=== PATIENT | male | born 1950 | race Caucasian/White ===

== ENCOUNTER 2018-09-03 08:25 | Emergency (ER) | payer MEDICARE, OTHER ==
[2018-09-03 08:43] VITALS: BP 163/76
--- NOTE | 2018-09-03 09:02 | EDM.PDOC ---
ED HPI GENERAL MEDICAL PROBLEM - General Chief Complaint: General Stated Complaint: LUMP ON CLAVICLE Time Seen by Provider: 09/03/18 09:02 Source of Information: Reports: Patient History Limitations: Reports: No Limitations - History of Present Illness INITIAL COMMENTS - FREE TEXT/NARRATIVE: 68-year-old male presents the ED with a palpable deformity and swelling which he states is enlarging on his right superior clavicle at the sternoclavicular junction. He recognizes this over a month ago. Plain x-rays were obtained and didn't show anything. This is quite common. Also time this is usually due to arthritic change. However it scalp located by the fact that he's lost 16 pounds of weight over the last 5-6 weeks and not on purpose. Of note the patient is a type II diabetic but states his sugars have been fairly well-controlled. Concer of course is that he may have cancer and this may be metastatic disease spread to his collarbone. He feels well however. Onset: Gradual (Started a lump on his right medial proximal clavicle about a month ago or more.) Onset Date: 08/01/18 Duration: Week(s):, Constant, Getting Worse Location: Reports: Neck (Lymph nodes medial superior aspect of proximal right clavicle. No known injuries in the past) Quality: Reports: Other (No pain. 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.) - Related Data Allergies Allergy/AdvReac Type Severity Reaction Status Date / Time metoclopramide Allergy Cannot Verified 09/03/18 08:37 Remember Home Meds: Home Meds Lovastatin 10 mg PO BEDTIME 03/22/14 [History] Ranitidine [Zantac] 150 mg PO BID 03/22/14 [History] metFORMIN [Glucophage] 500 mg PO BID 03/22/14 [History] traZODone 50 mg PO BEDTIME 03/22/14 [History] Aspirin/Caffeine [Back & Body Pain Reliever Cplt] 1 - 2 tab PO Q8H PRN 06/23/16 [History] Ergocalciferol (Vitamin D2) [Vitamin D2] 1 cap PO WEEKLY 06/23/16 [History] Hydrochlorothiazide/Lisinopril [Lisinopril-HCTZ 20-25 MG] 1 tab PO DAILY [History] Ibuprofen [Motrin] 1 tab PO Q6H PRN 06/23/16 [History] Modafinil 200 mg PO DAILY 06/23/16 [History] Omeprazole Magnesium [Prilosec Otc] 1 tab PO DAILY 06/23/16 [History] amLODIPine [Norvasc] 5 mg PO DAILY 06/23/16 [History] Past Medical History HEENT History: Reports: None Cardiovascular History: Reports: High Cholesterol, Hypertension Respiratory History: Reports: None, Sleep Apnea, Other (See Below) Other Respiratory History: Aspiration Pneumonia, chronic cough Gastrointestinal History: Reports: GERD (Currently using both Zantac when necessary and Prilosec.) Genitourinary History: Reports: None, Other (See Below) Other Genitourinary History: abnormal ejaculation, hematospermia 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 Musculoskeletal History: Reports: None, Other (See Below) Other Musculoskeletal History: arm pain, hand numbness, carpal tunnel syndrome, degenerative arthritis, lumbar strain, thumb injury Neurological History: Reports: None Psychiatric History: Reports: Depression, Other (See Below) Other Psychiatric History: fatigue Endocrine/Metabolic History: Reports: Diabetes, Type II, Vitamin D Deficiency Hematologic History: Reports: None Immunologic History: Reports: None Oncologic (Cancer) History: Reports: None Dermatologic History: Reports: Other (See Below) Other Dermatologic History: tinea pedis - Past Surgical History Head Surgeries/Procedures: Reports: None HEENT Surgical History: Reports: None GI Surgical History: Reports: Colonoscopy Neurological Surgical History: Reports: None Musculoskeletal Surgical History: Reports: Arthroscopic Knee, Arthroscopic Procedure Social & Family History - Tobacco Use Smoking Status *Q: Former Smoker Used Tobacco, but Quit: Yes Month/Year Tobacco Last Used: quit 38 years ago - Caffeine Use Caffeine Use: Reports: None - Recreational Drug Use Recreational Drug Use: No - Living Situation & Occupation Living situation: Reports: Occupation: Employed ED ROS GENERAL - Review of Systems Review Of Systems: See Below Constitutional: Reports: Weight Loss (About 16 pounds in the last 5-6 weeks. Not trying to lose weight.). Denies: Fever, Chills, Malaise, Weakness, Fatigue HEENT: Reports: Glasses Respiratory: Reports: No Symptoms Cardiovascular: Reports: No Symptoms, Blood Pressure Problem (History of hypertension usually well controlled on current medications. Blood pressures 163 on 76 on initial evaluation.) Endocrine: Reports: No Symptoms GI/Abdominal: Reports: No Symptoms, Other (Appetite remains good.) : Reports: No Symptoms Musculoskeletal: Reports: Other (Swelling non-painful medial aspect of right) Skin: Reports: No Symptoms ( proximal clavicle for the last month. See history of present illness) Neurological: Reports: No Symptoms Psychiatric: Reports: No Symptoms Hematologic/Lymphatic: Reports: No Symptoms Immunologic: Reports: No Symptoms ED EXAM, GENERAL - Physical Exam Exam: See Below Exam Limited By: No Limitations General Appearance: Alert, WD/WN, No Apparent Distress, Anxious (Minimally anxious.) Eye Exam: Bilateral Eye: Normal Inspection (No scleral icterus) Throat/Mouth: Normal Inspection, Normal Lips, Normal Oropharynx Head: Atraumatic, Normocephalic Neck: Normal Inspection, Supple, Non-Tender, Full Range of Motion, Other ( Palpable swelling bony in characteristic and irregular shaped superior aspect of the medial or proximal aspect of the right clavicle.). No: Carotid Bruit, Lymphadenopathy (L), Lymphadenopathy (R), Thyromegaly Respiratory/Chest: No Respiratory Distress ( He feels this area is enlarging over the last month), Lungs Clear, Normal Breath Sounds, Chest Non-Tender Cardiovascular: Normal Peripheral Pulses, Regular Rate, Rhythm, No Edema, No Gallop, No Murmur Peripheral Pulses: 2+: Posterior Tibial (L), Posterior Tibial (R), Dorsalis Pedis (L), Dorsalis Pedis (R) GI/Abdominal: Normal Bowel Sounds, Soft, Non-Tender, No Organomegaly, Other ( Mildly obese) Back Exam: Normal Inspection, Full Range of Motion. No: CVA Tenderness (L), CVA Tenderness (R) Extremities: Normal Inspection, Normal Range of Motion, Non-Tender, No Pedal Edema Neurological: Alert, Oriented, CN II-XII Intact, Normal Cognition, Normal Gait Psychiatric: Normal Affect, Normal Mood Skin Exam: Warm, Dry, Intact, Normal Color Course - Vital Signs Last Recorded V/S: Last Vital Signs Temp 36.9 C 09/03/18 08:39 Pulse 65 09/03/18 08:39 Resp 13 09/03/18 08:39 BP 163/76 H 09/03/18 08:39 Pulse Ox 100 09/03/18 08:39 - Orders/Labs/Meds Orders: Active Orders 24 hr Category Date Time Status Peripheral IV Care [RC] . DIRECTED Care 09/03/18 09:11 Active Sodium Chloride 0.9% [Saline Flush] Med 09/03/18 09:10 Active 10 ml FLUSH ASDIRECTED PRN Peripheral IV Insertion Adult [OM.PC] Stat Oth 09/03/18 09:11 Ordered Medication Orders Sodium Chloride (Saline Flush) 10 ml FLUSH ASDIRECTED PRN PRN Reason: Keep Vein Open Last Admin: 09/03/18 09:36 Dose: 10 ml Labs: Laboratory Tests 09/03/18 09/03/18 09/03/18 Range/Units 09:30 09:30 09:30 WBC 5.24 (4.23-9.07) K/mm3 RBC 5.09 (4.63-6.08) M/mm3 Hgb 15.2 (13.7-17.5) gm/L Hct 45.0 (40.1-51.0) % MCV 88.4 (79.0-92.2) fl MCH 29.9 (25.7-32.2) pg MCHC 33.8 (32.2-35.5) g/dl RDW Std Deviation 42.5 (35.1-43.9) fL Plt Count 292 (163-337) K/mm3 MPV 9.3 L (9.4-12.3) fl Neutrophils % (Manual) 60 (40-60) % Band Neutrophils % 0 (0-10) % Lymphocytes % (Manual) 27 (20-40) % Atypical Lymphs % 0 % Monocytes % (Manual) 9 (2-10) % Eosinophils % (Manual) 4 (0.8-7.0) % Basophils % (Manual) 0 L (0.2-1.2) Platelet Estimate Adequate RBC Morph Comment Normal ESR 6 (0-15) mm/hr Sodium 136 (136-145) mEq/L Potassium 4.2 (3.5-5.1) mEq/L Chloride 97 L (98-107) mEq/L Carbon Dioxide 27 (21-32) mEq/L Anion Gap 16.2 H (5-15) BUN 14 (7-18) mg/dL Creatinine 0.9 (0.7-1.3) mg/dL Est Cr Clr Drug Dosing 72.42 mL/min Estimated GFR (MDRD) > 60 (>60) mL/min BUN/Creatinine Ratio 15.6 (14-18) Glucose 174 H (80-115) mg/dL Hemoglobin A1c (4.50-6.20) % Calcium 9.7 (8.5-10.1) mg/dL Total Bilirubin 0.4 (0.2-1.0) mg/dL AST 16 (15-37) U/L ALT 26 (16-63) U/L Alkaline Phosphatase 81 (46-116) U/L C-Reactive Protein < 0.2 (<1.0) mg/dL Total Protein 7.7 (6.4-8.2) g/dl Albumin 4.5 (3.4-5.0) g/dl Globulin 3.2 gm/dL Albumin/Globulin Ratio 1.4 (1-2) TSH 3rd Generation (0.358-3.74) uIU/mL Urine Color (Yellow) Urine Appearance (Clear) Urine pH (5.0-8.0) Ur Specific [place] (1.005-1.030) Urine Protein (Negative) Urine Glucose (UA) (Negative) Urine Ketones (Negative) Urine Occult Blood (Negative) Urine Nitrite (Negative) Urine Bilirubin (Negative) Urine Urobilinogen (0.2-1.0) Ur Leukocyte Esterase (Negative) 09/03/18 09/03/18 09/03/18 Range/Units 09:30 09:30 09:30 WBC (4.23-9.07) K/mm3 RBC (4.63-6.08) M/mm3 Hgb (13.7-17.5) gm/L Hct (40.1-51.0) % MCV (79.0-92.2) fl MCH (25.7-32.2) pg MCHC (32.2-35.5) g/dl RDW Std Deviation (35.1-43.9) fL Plt Count (163-337) K/mm3 MPV (9.4-12.3) fl Neutrophils % (Manual) (40-60) % Band Neutrophils % (0-10) % Lymphocytes % (Manual) (20-40) % Atypical Lymphs % % Monocytes % (Manual) (2-10) % Eosinophils % (Manual) (0.8-7.0) % Basophils % (Manual) (0.2-1.2) Platelet Estimate RBC Morph Comment ESR (0-15) mm/hr Sodium (136-145) mEq/L Potassium (3.5-5.1) mEq/L Chloride (98-107) mEq/L Carbon Dioxide (21-32) mEq/L Anion Gap (5-15) BUN (7-18) mg/dL Creatinine (0.7-1.3) mg/dL Est Cr Clr Drug Dosing mL/min Estimated GFR (MDRD) (>60) mL/min BUN/Creatinine Ratio (14-18) Glucose (80-115) mg/dL Hemoglobin A1c 6.30 H (4.50-6.20) % Calcium (8.5-10.1) mg/dL Total Bilirubin (0.2-1.0) mg/dL AST (15-37) U/L ALT (16-63) U/L Alkaline Phosphatase (46-116) U/L C-Reactive Protein (<1.0) mg/dL Total Protein (6.4-8.2) g/dl Albumin (3.4-5.0) g/dl Globulin gm/dL Albumin/Globulin Ratio (1-2) TSH 3rd Generation 2.871 (0.358-3.74) uIU/mL Urine Color Light yellow (Yellow) Urine Appearance Clear (Clear) Urine pH 7.0 (5.0-8.0) Ur Specific [place] 1.020 (1.005-1.030) Urine Protein Negative (Negative) Urine Glucose (UA) Negative (Negative) Urine Ketones Negative (Negative) Urine Occult Blood Negative (Negative) Urine Nitrite Negative (Negative) Urine Bilirubin Negative (Negative) Urine Urobilinogen 0.2 (0.2-1.0) Ur Leukocyte Esterase Negative (Negative) Meds: Medications Generic Name Dose Route Start Last Admin Trade Name Freq PRN Reason Stop Dose Admin Sodium Chloride 10 ml 09/03/18 09:10 09/03/18 09:36 Saline Flush FLUSH 10 ml ASDIRECTED PRN Administration Keep Vein Open Discontinued Medications Generic Name Dose Route Start Last Admin Trade Name Imelda PRN Reason Stop Dose Admin Iopamidol 100 ml 09/03/18 10:56 09/03/18 11:15 Isovue-370 (76%) IV 09/03/18 10:57 100 ml ONETIME ONE Administration - Radiology Interpretation Free Text/Narrative:: 68-year-old male presents to the ED for evaluation of a mass superior aspect of his right medial collarbone at the sternoclavicular junction. States he felt a mass there over a month ago and had it x-rayed which did not reveal anything. He feels area is becoming more prominent and growing. He also has a reported 16 pound weight loss over the last 5-6 weeks which was not planned. He has diabetes and reports that his blood sugars have been under good control. On examination he does have a palpable bony deformity superior medial aspect of his right clavicle which appears somewhat spiculated. It is nontender. Full range of motion of his right shoulder with rotation of the clavicle. The area is nonpainful. No other cervical adenopathy anterior posterior chains were identified. There is no specific or infraclavicular adenopathy noted. Chest was clear to stage percussion heart was sinus no murmurs are identified benign abdominal examination. No other lymphadenopathy appreciated his axillas. Plan routine labs including a sedimentation rate and CRP. He will have CT chest abdomen pelvis performed of his creatinine is okay to allow IV contrast to explore his chest abdomen pelvis. - Re-Assessments/Exams Free Text/Narrative Re-Assessment/Exam: 09/03/18 10:53 Labs are back revealing a normal white count at 5.24. Differential is normal 60% neutrophils and no band cells. Hemoglobin is 15.2 with hematocrit of 45.0. Platelet count is 292,000. Sedimentation rate is 6. Sodium 136 with potassium of 4.2. Coronary 7 with a bicarbonate 27. And a gap is mildly elevated at 16.2. BUNs 14 with creatinine of 0.9. Estimate GFR is greater than 60. Glucose is elevated at 174. Hemoglobin A1c is very well controlled at 6.30. Calcium is 9.7 liver function is normal C-reactive protein less than 0.2. Total protein 7.7 with albumin fraction of 4.5. Will therefore be able to proceed with a CT of his chest abdomen pelvis with IV contrast since his renal function is normal. He is currently on metformin and has been advised to stay off of the metformin for the next 72 hours. 09/03/18 12:11 CT scan of the chest abdomen pelvis done with IV contrast is now back. The findings show that the lungs are clear. No pulmonary nodules are appreciated. No acute parenchymal changes appreciated. There is no pleural effusions or pneumothorax. No pericardial thickening is seen. No significant coronary artery calcifications appreciated small mediastinal lymph nodes are seen which are felt to be stable. No axillary adenopathy is seen. No supraclavicular adenopathy is seen. There is very slight asymmetric soft tissue density noted around the proximal right clavicle as compared to the left side this lies below the pectoralis muscle and is felt to be incidental. Bone window settings were reviewed which shows minimal degenerative spurring within the spine with several levels of vacuum phenomena within the lower thoracic spine due to degenerative disc disease no acute osseous abnormality is seen there is an old right-sided rib fracture within the right ninth rib. CT of the abdomen shows liver shows no focal abnormalities. Gallbladder contains no calcified gallstones. Spleen appears to be within normal limits. Several small cysts soft tissue nodules are noted off of the spleen which are felt compatible with accessory splenic tissue. Small cortical cysts are noted within the left kidney right kidney is normal. No hydronephrosis is identified adrenal glands show no nodule. Pancreas is within normal limits aorta shows no aneurysm. No retroperitoneal adenopathy or mesenteric abnormalities are noted. Appendix is seen which is normal in size. Calcification noted within the prostate gland. Delayed images show contrast within the distal ureters and within the bladder. Bone window settings were reviewed which show disc space narrowing and vacuum phenomena within the L2-3 through L5-S1 discs. I have discussed the findings with the patient. Will leave this area deserves further imaging an MRI will therefore be ordered of this area and I will have the x-ray department column with an appointment time early next week. We'll then follow-up with Makeda Avila his primary care provider due to after the MRI has been completed to discuss the results and see if further investigations such as biopsy of this area or warranted. This would most likely have to be done by a thoracic surgeon. Departure - Departure Time of Disposition: 12:04 Disposition: Home, Self-Care 01 Condition: Fair Clinical Impression: Unilateral mass of neck - Discharge Information *PRESCRIPTION DRUG MONITORING PROGRAM REVIEWED*: Not Applicable *COPY OF PRESCRIPTION DRUG MONITORING REPORT IN PATIENT MAYELIN: Not Applicable Referrals: Ronnie Avila PA-C [Primary Care Provider] - Forms: ED Department Discharge Additional Instructions: Evaluation in the emergency department today in regards to probable mass right medial clavicle which seems to be growing over the last month. It is nonpainful. Lab tests all proved to be completely normal with no concerns for underlying cancer. CT scan of the chest abdomen and pelvis also proved to show no signs of cancer. It did identify a subtle soft tissue mass density behind the right collarbone at the site of your palpable deformity. The cause of this her etiology is unclear at this point time and requires further investigation especially in light of recent reported weight loss. I will therefore arrange for an MRI of this area to be done early next week and now will have the x-ray department, you on Wednesday to arrange a convenient time for both of you. The results will be sent to Ronnie Avila your primary care provider and then he will direct where further care may be required such as if biopsy of this area is required it probably will be done open and should probably be done by a thoracic surgeon. Just making an appointment to see Ronnie avila a day or 2 after the MRI is completed. - My Orders Last 24 Hours: My Active Orders 09/03/18 09:10 Sodium Chloride 0.9% [Saline Flush] 10 ml FLUSH ASDIRECTED PRN 09/03/18 09:11 Peripheral IV Care [RC] . DIRECTED Peripheral IV Insertion Adult [OM.PC] Stat - Assessment/Plan Last 24 Hours: My Active Orders 09/03/18 09:10 Sodium Chloride 0.9% [Saline Flush] 10 ml FLUSH ASDIRECTED PRN 09/03/18 09:11 Peripheral IV Care [RC] . DIRECTED Peripheral IV Insertion Adult [OM.PC] Stat
[2018-09-03] MEDS ORDERED: Sodium Chloride 0.9% 10 ML Syringe FLUSH PRN (09:10)
[2018-09-03 10:30] LABS: HEMOGLOBIN A1C 6.3 % (4.50-6.20)
[2018-09-03] MEDS ORDERED: Iopamidol 755 Mg/ML 200 ML Bottle IV ONE (10:56)
--- NOTE | 2018-09-03 11:37 | CT ---
CT chest Technique: No prior chest CT, previous chest x-ray of 05/14/18. Findings: Lungs are clear. No pulmonary nodule is seen. No acute parenchymal change is appreciated. No pleural effusions or pneumothorax are seen. No pericardial thickening is seen. No significant coronary artery calcification is noted. Small mediastinal lymph nodes are seen which are felt to be stable. No axillary adenopathy is seen. No supraclavicular adenopathy is seen. Very slight asymmetric soft tissue density is noted around the proximal right clavicle as compared to the left side. This lies below the pectoralis muscle and is felt to be incidental. Bone window settings were reviewed which shows minimal degenerative spurring within the spine with several levels of vacuum phenomena within the lower thoracic spine. No acute osseous abnormality is seen. There is an old right-sided rib fracture within the right ninth rib. Impression: 1. Minimally asymmetric soft tissue density between the right and left proximal clavicle. This is felt to be incidental. 2. Other incidental findings. Nothing acute is seen. Diagnostic code #2 CT abdomen and pelvis Technique: Multiple axial sections were obtained from above the dome of the diaphragm inferiorly through the pubic symphysis. Intravenous contrast was utilized. No oral contrast has been given. Delayed images were obtained through the bladder. Comparison: No prior abdominal imaging. Findings: Liver contains no focal abnormality. Gallbladder contains no calcified gallstones. Spleen appears within normal limits. Several small soft tissue nodules are noted off the spleen which are felt compatible with accessory splenic tissue. Small cortical cysts are noted within the left kidney. Right kidney is normal. No hydronephrosis is seen. Adrenal glands show no nodule. Pancreas is within normal limits. Aorta shows no aneurysm. No retroperitoneal adenopathy or mesenteric abnormalities are seen. Appendix is seen which is normal in size. Calcifications are noted within the prostate gland. Delayed images shows contrast within the distal ureters and within the bladder. Bone window settings were reviewed which shows disc space narrowing and vacuum phenomena within the L2-3 through L5-S1 disks. Impression: 1. Incidental findings as noted above. Nothing acute is appreciated on CT study of the abdomen and pelvis. Diagnostic code #2
== END 2018-09-03 12:23 | disposition home or self-care (01) ==
LOC: JD.ED 08:25
DX: R22.1 Localized swelling, mass and lump, neck (principal); I10 Essential (primary) hypertension; E11.9 Type 2 diabetes mellitus without complications; Z88.8 Allergy status to other drugs, medicaments and biological substances; Z79.899 Other long term (current) drug therapy; Z87.891 Personal history of nicotine dependence
CPT/HCPCS: 36415; 71260; 74177; 80053; 81003; 83036; 84443; 85007; 85027; 85652; 86140; 99284; Q9967; 99283

== ENCOUNTER 2019-01-29 12:11 | Emergency (ER) | payer MEDICARE, OTHER ==
--- NOTE | 2019-01-29 12:42 | EDM.PDOC ---
ED HPI GENERAL MEDICAL PROBLEM - General Chief Complaint: Chest Pain Stated Complaint: CHEST PAIN WHEN LIFTING Time Seen by Provider: 01/29/19 12:37 Source of Information: Reports: Patient History Limitations: Reports: No Limitations - History of Present Illness INITIAL COMMENTS - FREE TEXT/NARRATIVE: 68-year-old male presents to the ED with right paracentral chest pressure discomfort that's worsened by movement and on exertion by throwing his hoses around at work. This been present for about 3 days. He then had a little bit of left-sided chest pain which felt more burning and discomfort this morning. Denies having excessive positive heartburn. Denies burping or belching. Denies fever or chills. He is coughing up a bit more clearish sputum than normal. A non -deep inspiration. 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 Has no pain in either orbit. Denies any hemoptysis. O2 sats are 98% on room air. Onset: Gradual Onset Date: 01/26/19 (As noted a fairly constant right parasternal mid chest pressure discomfort worsened by exertion for the last 3 days.) Duration: Day(s):, Waxing/Waning (Usually comes on with exertion. This usually means putting his hoses away or pulling a hose out of the back of a truck when he is working.) Location: Reports: Chest (Right parasternal chest discomfort.) Quality: Reports: Ache Severity: Moderate (4 out of 10.) Improves with: Reports: Rest Worsens with: Reports: Other Context: Reports: Exercise, Other (Pain is worsened by work.). Denies: Activity (Certain movements and particularly lifting his and pulling his hoses out of the back of his truck causes the pain to worsen.), Lifting, Sick Contact , Trauma Associated Symptoms: Reports: Chest Pain, Cough, cough w sputum (Mild cough of clearish sputum.). 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) (None.) Upper Chest Pain Score (Numeric/FACES): 1 - Related Data Allergies Allergy/AdvReac Type Severity Reaction Status Date / Time metoclopramide Allergy Cannot Verified 01/29/19 12:21 Remember Home Meds: Home Meds Lovastatin 10 mg PO BEDTIME 03/22/14 [History] Ranitidine [Zantac] 150 mg PO BID 03/22/14 [History] metFORMIN [Glucophage] 500 mg PO BID 03/22/14 [History] traZODone 50 mg PO BEDTIME 03/22/14 [History] Aspirin/Caffeine [Back & Body Pain Reliever Cplt] 1 - 2 tab PO Q8H PRN 06/23/16 [History] Ibuprofen [Motrin] 1 tab PO Q6H PRN 06/23/16 [History] Modafinil 200 mg PO DAILY 06/23/16 [History] Omeprazole Magnesium [Prilosec Otc] 1 tab PO DAILY 06/23/16 [History] amLODIPine [Norvasc] 5 mg PO DAILY 06/23/16 [History] Azithromycin [Zithromax] 250 mg PO DAILY #6 tab 01/29/19 [Rx] Past Medical History HEENT History: Reports: None Cardiovascular History: Reports: High Cholesterol, Hypertension Respiratory History: Reports: None, Sleep Apnea, Other (See Below) Other Respiratory History: Aspiration Pneumonia, chronic cough Gastrointestinal History: Reports: GERD Genitourinary History: Reports: None, Other (See Below) Other Genitourinary History: abnormal ejaculation, hematospermia 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 Musculoskeletal History: Reports: None, Other (See Below) Other Musculoskeletal History: arm pain, hand numbness, carpal tunnel syndrome, degenerative arthritis, lumbar strain, thumb injury Neurological History: Reports: None Psychiatric History: Reports: Depression, Other (See Below) Other Psychiatric History: fatigue Endocrine/Metabolic History: Reports: Diabetes, Type II, Vitamin D Deficiency Hematologic History: Reports: None Immunologic History: Reports: None Oncologic (Cancer) History: Reports: None Dermatologic History: Reports: Other (See Below) Other Dermatologic History: tinea pedis - Past Surgical History Head Surgeries/Procedures: Reports: None HEENT Surgical History: Reports: None GI Surgical History: Reports: Colonoscopy Neurological Surgical History: Reports: None Musculoskeletal Surgical History: Reports: Arthroscopic Knee, Arthroscopic Procedure Social & Family History - Tobacco Use Smoking Status *Q: Never Smoker Second Hand Smoke Exposure: No - Caffeine Use Caffeine Use: Reports: None - Living Situation & Occupation Living situation: Reports: Occupation: Employed ED ROS GENERAL - Review of Systems Review Of Systems: See Below Constitutional: Reports: Weakness, Fatigue. Denies: Fever, Chills, Malaise, Decreased Appetite, Weight Loss HEENT: Reports: Glasses Respiratory: Reports: Cough. 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 Denies : Claudication, Dyspnea on Exertion, Edema, Lightheadedness, Orthopnea, Palpitations Endocrine: Reports: No Symptoms GI/Abdominal: Reports: Other (Mild heartburn.) : Reports: Frequency (Nocturia 2.), Other Musculoskeletal: Reports: No Symptoms Skin: Reports: No Symptoms Neurological: Reports: No Symptoms Psychiatric: Reports: No Symptoms Hematologic/Lymphatic: Reports: No Symptoms Immunologic: Reports: No Symptoms ED EXAM, GENERAL - Physical Exam Exam: See Below Exam Limited By: No Limitations General Appearance: Alert, WD/WN, No Apparent Distress Eye Exam: Bilateral Eye: Normal Inspection, PERRL Ears: Normal External Exam, Normal Canal, Normal TMs Throat/Mouth: Normal Inspection, Normal Lips, Normal Teeth, Normal Oropharynx Head: Atraumatic, Normocephalic Neck: Normal Inspection, Supple, Non-Tender, Full Range of Motion. No: Lymphadenopathy (L), Lymphadenopathy (R) Respiratory/Chest: No Respiratory Distress, Lungs Clear, No Accessory Muscle Use , Chest Non-Tender, Rhonchi (Few rhonchi both bases of lungs likely due to atelectasis.), Other (I could not elicit any chest pain on firm palpation over the anterior ribs or sternum.) Cardiovascular: Normal Peripheral Pulses, Regular Rate, Rhythm, No Edema, No Gallop, No Murmur, No Rub Peripheral Pulses: 3+: Posterior Tibial (L), Posterior Tibial (R), Dorsalis Pedis (L), Dorsalis Pedis (R) GI/Abdominal: Normal Bowel Sounds, Soft, Non-Tender, No Organomegaly, No Abnormal Bruit, No Mass, Pelvis Stable Back Exam: Normal Inspection, Full Range of Motion, Other (No palpable deformities over the rib heads.) Extremities: Normal Inspection, Normal Range of Motion, Non-Tender, No Pedal Edema, Normal Capillary Refill Neurological: Alert, Oriented, CN II-XII Intact, Normal Cognition Psychiatric: Normal Affect, Normal Mood Skin Exam: Warm, Dry, Intact, Normal Color, No Rash EKG INTERPRETATION EKG Date: 01/29/19 Time: 13:01 Rhythm: Other Rate (Beats/Min): 58 [place]: LAD-Left Cantrall Deviation (-32) P-Wave: Present QRS: Other (Initial poor R-wave progression. Consider anteroseptal myocardial infarction. There is a near Q-wave in lead 3 and aVF consider old inferior wall myocardial infarction.) ST-T: Other (Mild early repolarization pattern.) EKG Interpretation Comments: Abnormal ECG Course - Vital Signs Last Recorded V/S: Last Vital Signs Temp 36.1 C 01/29/19 12:20 Pulse 62 01/29/19 12:20 Resp 14 01/29/19 12:20 BP 161/60 H 01/29/19 12:20 Pulse Ox 100 01/29/19 12:20 - Orders/Labs/Meds Orders: Active Orders 24 hr Category Date Time Status EKG Documentation Completion [RC] STAT Care 01/29/19 12:37 Active Chest 1V Frontal [CR] Stat Exams 01/29/19 12:37 Taken Sodium Chloride 0.9% [Normal Saline] 1,000 ml Med 01/29/19 12:45 Active IV ASDIRECTED Medication Orders Sodium Chloride (Normal Saline) 1,000 mls @ 150 mls/hr IV ASDIRECTED DI Last Admin: 01/29/19 13:00 Dose: 150 mls/hr Labs: Laboratory Tests 01/29/19 01/29/19 01/29/19 Range/Units 12:53 12:53 12:53 WBC 4.66 (4.23-9.07) K/mm3 RBC 4.34 L (4.63-6.08) M/mm3 Hgb 13.1 L D (13.7-17.5) gm/L Hct 38.9 L (40.1-51.0) % MCV 89.6 (79.0-92.2) fl MCH 30.2 (25.7-32.2) pg MCHC 33.7 (32.2-35.5) g/dl RDW Std Deviation 43.3 (35.1-43.9) fL Plt Count 269 (163-337) K/mm3 MPV 9.1 L (9.4-12.3) fl Neut % (Auto) 59.8 (34.0-67.9) % Lymph % (Auto) 27.0 (21.8-53.1) % [place] % (Auto) 7.7 (5.3-12.2) % Eos % (Auto) 4.9 (0.8-7.0) Baso % (Auto) 0.6 (0.1-1.2) % Neut # (Auto) 2.78 (1.78-5.38) K/mm3 Lymph # (Auto) 1.26 L (1.32-3.57) K/mm3 [place] # (Auto) 0.36 (0.30-0.82) K/mm3 Eos # (Auto) 0.23 (0.04-0.54) K/mm3 Baso # (Auto) 0.03 (0.01-0.08) K/mm3 PT 10.1 (9.7-12.0) SECONDS INR < 0.93 APTT (22-31) SECONDS D-Dimer, Quantitative (0.19-0.50) mg/L Sodium 140 (136-145) mEq/L Potassium 4.3 (3.5-5.1) mEq/L Chloride 106 (98-107) mEq/L Carbon Dioxide 26 (21-32) mEq/L Anion Gap 12.3 (5-15) BUN 12 (7-18) mg/dL Creatinine 0.8 (0.7-1.3) mg/dL Est Cr Clr Drug Dosing 89.98 mL/min Estimated GFR (MDRD) > 60 (>60) mL/min BUN/Creatinine Ratio 15.0 (14-18) Glucose 148 H (80-115) mg/dL Calcium 9.0 (8.5-10.1) mg/dL Magnesium 2.0 (1.8-2.4) mg/dl Total Bilirubin 0.3 (0.2-1.0) mg/dL AST 13 L (15-37) U/L ALT 24 (16-63) U/L Alkaline Phosphatase 81 (46-116) U/L CK-MB (CK-2) 2.1 (0-3.6) ng/ml Troponin I < 0.017 (0.00-0.056) ng/mL C-Reactive Protein 0.2 (<1.0) mg/dL NT-Pro-B Natriuret Pep (0-125) pg/mL Total Protein 6.8 (6.4-8.2) g/dl Albumin 4.0 (3.4-5.0) g/dl Globulin 2.8 gm/dL Albumin/Globulin Ratio 1.4 (1-2) 01/29/19 01/29/19 Range/Units 12:53 12:53 WBC (4.23-9.07) K/mm3 RBC (4.63-6.08) M/mm3 Hgb (13.7-17.5) gm/L Hct (40.1-51.0) % MCV (79.0-92.2) fl MCH (25.7-32.2) pg MCHC (32.2-35.5) g/dl RDW Std Deviation (35.1-43.9) fL Plt Count (163-337) K/mm3 MPV (9.4-12.3) fl Neut % (Auto) (34.0-67.9) % Lymph % (Auto) (21.8-53.1) % [place] % (Auto) (5.3-12.2) % Eos % (Auto) (0.8-7.0) Baso % (Auto) (0.1-1.2) % Neut # (Auto) (1.78-5.38) K/mm3 Lymph # (Auto) (1.32-3.57) K/mm3 [place] # (Auto) (0.30-0.82) K/mm3 Eos # (Auto) (0.04-0.54) K/mm3 Baso # (Auto) (0.01-0.08) K/mm3 PT (9.7-12.0) SECONDS INR APTT 23 (22-31) SECONDS D-Dimer, Quantitative 0.21 (0.19-0.50) mg/L Sodium (136-145) mEq/L Potassium (3.5-5.1) mEq/L Chloride (98-107) mEq/L Carbon Dioxide (21-32) mEq/L Anion Gap (5-15) BUN (7-18) mg/dL Creatinine (0.7-1.3) mg/dL Est Cr Clr Drug Dosing mL/min Estimated GFR (MDRD) (>60) mL/min BUN/Creatinine Ratio (14-18) Glucose (80-115) mg/dL Calcium (8.5-10.1) mg/dL Magnesium (1.8-2.4) mg/dl Total Bilirubin (0.2-1.0) mg/dL AST (15-37) U/L ALT (16-63) U/L Alkaline Phosphatase (46-116) U/L CK-MB (CK-2) (0-3.6) ng/ml Troponin I (0.00-0.056) ng/mL C-Reactive Protein (<1.0) mg/dL NT-Pro-B Natriuret Pep 14 (0-125) pg/mL Total Protein (6.4-8.2) g/dl Albumin (3.4-5.0) g/dl Globulin gm/dL Albumin/Globulin Ratio (1-2) Meds: Medications Generic Name Dose Route Start Last Admin Trade Name Freq PRN Reason Stop Dose Admin Sodium Chloride 1,000 mls @ 150 mls/hr 01/29/19 12:45 01/29/19 13:00 Normal Saline IV 150 mls/hr ASDIRECTED DI Administration - Radiology Interpretation Free Text/Narrative:: 68-year-old male presents to the ED for evaluation of central chest pressure discomfort that he said to the right parasternal area for about 3 days. He appreciates worsens on exertion. This occurs mostly when he is lifting his toes is in and out of his truck in the workplace. He's been coughing a little bit more lately and bring up some clearish sputum. No associated fever or chills. Examination reveals a few rhonchi both lower lobes of the bases. O2 sats are 90 % on room air. His lower extremities show no clinical evidence of swelling or DVT. Plan he will have a cardiac workup and a single chest x-ray. - Re-Assessments/Exams Free Text/Narrative Re-Assessment/Exam: 01/29/19 14:00: Chest x-ray done portably shows a normal cardiac silhouette with perhaps a very mildly prominent thoracic aorta suggesting some degree of tortuosity. Visualized lung lazo are clear. There is no pleural effusion there is no pneumothorax. 01/29/19 14:34 Labs reveal a normal white count at 4.66. The auto differential shows 60% neutrophils and 27% lymphocytes. Hemoglobin is 13.1 with a hematocrit of 38.9. Platelet count 26 9000. PT is 10.1 with an INR of less than 0.93. PTT is 23 with a d-dimer at 0.21. Sodium 140 with a potassium of 4.3. Chloride 106 with a bicarbonate 26. And a gap is 12.3. BUN is 12. GFR is greater than 60. Glucose is 148. Calcium 9.0. Magnesium 2.0. Liver function is normal. CK-MB fraction is 2.1 and troponin is less than 0.017. C-reactive protein is 0.2. BNP is 14. Total protein 6.8 with an albumin fraction of 4.0. 01/29/19 14:57 discussed the findings with the patient. He may be coming down with a viral upper respiratory tract infection i.e. bronchitis but at this point time I do not see any need for antibiotic treatment. Regards to his chest pain is worse with exertion of advised him to keep an eye on this is a suspect is chest wall in origin. If things are not markedly improved in 7-10 days time than he should have another ECG stress test. Last one was about 2 years ago when he passed this without any problems. When he was recently back home in [place] he had ultrasound of both carotid arteries and CT brain which proved to be completely normal. A strip claudication and quit smoking may years ago. I will give the patient a prescription for Z-Salomón to fill if he develops any fever or develops a cough containing green or yellowish phlegm Departure - Departure Time of Disposition: 14:58 Disposition: Home, Self-Care 01 Condition: Fair Clinical Impression: Non-cardiac chest pain, Viral bronchitis Prescriptions: Azithromycin [Zithromax] 250 mg PO DAILY #6 tab Referrals: Ronnie Blum PA-C [Primary Care Provider] - Forms: ED Department Discharge Additional Instructions: Evaluation the emergency room today in regards to persistent right parasternal chest discomfort for the last 3 days and some left precordial chest discomfort yesterday. He noticed this seems to be worse with exertion such as moving the hoses and placing the hoses into the back of the truck at work. He also seemed to be coming down with an upper respiratory tract infection with increased clear sputum production at this time and no fever. Investigations done through the ED and revealed a normal ECG. Chest x-ray is also clear and normal. Does not show any signs of pneumonia. Tests also revealed a normal white blood cell count with some suggest developing an early viral infection. Cardiac markers for heart attack were all normal. No evidence of any blood clots in the lung with a normal d-dimer. Markers for bacterial infection also proved to be negative. At this point time your chest pain appears to be chest wall in origin i.e. musculoskeletal. The deep muscles in between the ribs causing pain with certain movements. Continue Motrin 600 mg every 6 hours needed for pain relief. Having pain is 7-10 days time with exertion and you need a ECG stress test.) Patient for a Z-Salomón which is an antibiotic. You could take this 2 tablets the first day and then 1 tablet daily for another 4 days if your cough worsened since becomes more productive of yellow or greenish phlegm or you develop any fever or chills. - My Orders Last 24 Hours: My Active Orders 01/29/19 12:37 EKG Documentation Completion [RC] STAT Chest 1V Frontal [CR] Stat 01/29/19 12:45 Sodium Chloride 0.9% [Normal Saline] 1,000 ml IV ASDIRECTED - Assessment/Plan Last 24 Hours: My Active Orders 01/29/19 12:37 EKG Documentation Completion [RC] STAT Chest 1V Frontal [CR] Stat 01/29/19 12:45 Sodium Chloride 0.9% [Normal Saline] 1,000 ml IV ASDIRECTED
[2019-01-29] MEDS ORDERED: Sodium Chloride 0.9% 1,000 ML IV SCH (12:45)
[2019-01-29 15:17] VITALS: BP 126/74; PULSE 56
--- NOTE | 2019-01-30 09:22 | CR ---
Chest: Portable view of the chest was obtained. Comparison: Prior chest x-ray of 05/14/18 Heart size and mediastinum are within normal limits for portable technique. Lungs are clear with no acute parenchymal change. Bony structures are grossly intact. Impression: 1. Nothing acute is seen on portable chest x-ray. Diagnostic code #1
== END 2019-01-29 15:15 | disposition home or self-care (01) ==
LOC: JD.ED 12:11
DX: J20.8 Acute bronchitis due to other specified organisms (principal); I10 Essential (primary) hypertension; E78.00 Pure hypercholesterolemia, unspecified; K21.9 Gastro-esophageal reflux disease without esophagitis; E11.9 Type 2 diabetes mellitus without complications; F32.9 Major depressive disorder, single episode, unspecified; Z88.8 Allergy status to other drugs, medicaments and biological substances; Z79.82 Long term (current) use of aspirin; Z79.899 Other long term (current) drug therapy; Z79.84 Long term (current) use of oral hypoglycemic drugs
CPT/HCPCS: 36415; 71045; 80053; 82553; 83735; 83880; 84484; 85025; 85379; 85610; 85730; 86140; 93005; 96360; 96361; 99285; J7040; 93010; 99284

== ENCOUNTER 2019-06-02 14:04 | Emergency (ER) | payer MEDICARE, OTHER ==
[2019-06-02 14:21] VITALS: BP 157/90; PULSE 66
--- NOTE | 2019-06-02 14:28 | EDM.PDOC ---
ED HPI GENERAL MEDICAL PROBLEM - General Chief Complaint: Upper Extremity Injury/Pain Stated Complaint: ELBOW PAIN Time Seen by Provider: 06/02/19 14:17 Source of Information: Reports: Patient, RN Notes Reviewed History Limitations: Reports: No Limitations - History of Present Illness INITIAL COMMENTS - FREE TEXT/NARRATIVE: Patient is a 69-year-old male who presents to the ED for the evaluation of right elbow pain. Patient notes that he has had an issue with tennis elbow for around 15 years now. He states however at that time he did PT, and the pain gradually subsided. He noticed that he began to have some more irritation about a week ago, and the pain keeps flaring up and he keeps reinjuring the elbow over the last week. He states he is not taking any sort of medications for pain relief. He is not using any sort of brace for pain relief. 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 He denies any numbness and tingling into his hand, and he has no further pain into his shoulder. He further denies any trauma to the area. His primary care provider is Ronnie Blum. Right Elbow Pain Score (Numeric/FACES): 5 - Related Data Allergies Allergy/AdvReac Type Severity Reaction Status Date / Time metoclopramide Allergy Cannot Verified 06/02/19 14:21 Remember Home Meds: Home Meds Lovastatin 10 mg PO BEDTIME 03/22/14 [History] Ranitidine [Zantac] 150 mg PO BID 03/22/14 [History] metFORMIN [Glucophage] 500 mg PO BID 03/22/14 [History] traZODone 50 mg PO BEDTIME 03/22/14 [History] Aspirin/Caffeine [Back & Body Pain Reliever Cplt] 1 - 2 tab PO Q8H PRN 06/23/16 [History] Ibuprofen [Motrin] 1 tab PO Q6H PRN 06/23/16 [History] Modafinil 200 mg PO DAILY 06/23/16 [History] Omeprazole Magnesium [Prilosec Otc] 1 tab PO DAILY 06/23/16 [History] amLODIPine [Norvasc] 5 mg PO DAILY 06/23/16 [History] Azithromycin [Zithromax] 250 mg PO DAILY #6 tab 09/08/19 [Rx] Past Medical History Cardiovascular History: Reports: High Cholesterol, Hypertension Respiratory History: Reports: None, Other (See Below) Other Respiratory History: Aspiration Pneumonia, chronic cough Gastrointestinal History: Reports: GERD Genitourinary History: Reports: Other (See Below) Other Genitourinary History: abnormal ejaculation, hematospermia Musculoskeletal History: Reports: Other (See Below) Other Musculoskeletal History: arm pain, hand numbness, carpal tunnel syndrome, degenerative arthritis, lumbar strain, thumb injury Psychiatric History: Reports: Depression, Other (See Below) Other Psychiatric History: fatigue Endocrine/Metabolic History: Reports: Diabetes, Type II, Vitamin D Deficiency Dermatologic History: Reports: Other (See Below) Other Dermatologic History: tinea pedis - Past Surgical History GI Surgical History: Reports: Colonoscopy Musculoskeletal Surgical History: Reports: Arthroscopic Knee, Arthroscopic Procedure Social & Family History - Tobacco Use Smoking Status *Q: Former Smoker Used Tobacco, but Quit: Yes Month/Year Tobacco Last Used: 1899 - Caffeine Use Caffeine Use: Reports: Other Caffeine Use Comment: caffiene pills - Recreational Drug Use Recreational Drug Use: No - Living Situation & Occupation Living situation: Reports: 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 Musculoskeletal: Reports: Joint Pain (R lateral elbow pain), Joint Swelling (R elbow, mild) Skin: Denies: Erythema ED EXAM, GENERAL - Physical Exam Exam: See Below Exam Limited By: No Limitations General Appearance: Alert, WD/WN, No Apparent Distress Respiratory/Chest: No Respiratory Distress, Lungs Clear, Normal Breath Sounds, No Accessory Muscle Use, Chest Non-Tender Cardiovascular: Normal Peripheral Pulses, Regular Rate, Rhythm, No Edema, No Murmur Peripheral Pulses: 3+: Radial (L), Radial (R) Extremities: Normal Inspection, Normal Range of Motion, Normal Capillary Refill , Joint Swelling (very mild swelling of R elbow), Other (pt states that it hurts to lift even a coffe thermos) Neurological: Alert, Oriented, Normal Cognition, No Motor/Sensory Deficits Psychiatric: Normal Affect, Normal Mood Skin Exam: Warm, Dry, Intact, Normal Color, No Rash Course - Vital Signs Last Recorded V/S: Last Vital Signs Temp 98.5 F 06/02/19 14:14 Pulse 66 06/02/19 14:14 Resp 16 06/02/19 14:14 BP 157/90 H 06/02/19 14:14 Pulse Ox 99 06/02/19 14:14 - Orders/Labs/Meds Orders: Active Orders 24 hr Category Date Time Status DME for Discharge [COMM] Routine Oth 06/02/19 14:38 Ordered Meds: Medications Discontinued Medications Generic Name Dose Route Start Last Admin Trade Name Imelda PRN Reason Stop Dose Admin Ketorolac Tromethamine 60 mg 06/02/19 14:37 Toradol IM 06/02/19 14:38 ONETIME ONE - Re-Assessments/Exams Free Text/Narrative Re-Assessment/Exam: 06/02/19 14:43 Presents to the ED for evaluation of elbow pain. 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 Nonetheless I have ordered 60 mg IM Toradol for management, will recommend that he take 600 mg ibuprofen every 6 hours for further pain relief, try to rest the elbow as much as possible and use ice as tolerated. He will be given a tennis elbow strap from this ER if we have one, otherwise a prescription will be sent for him so he can obtain this at the home medical store. Or he can pick 1 up in any retail pharmacy. Patient is okay with this plan at this time. Departure - Departure Time of Disposition: 14:45 Disposition: Home, Self-Care 01 Condition: Fair Clinical Impression: Nontraumatic pain and swelling of elbow, Right tennis elbow - Discharge Information *PRESCRIPTION DRUG MONITORING PROGRAM REVIEWED*: No *COPY OF PRESCRIPTION DRUG MONITORING REPORT IN PATIENT MAYELIN: No Instructions: Tennis Elbow Rehab-SportsMed Referrals: Ronnie Blum PA-C [Primary Care Provider] - Forms: ED Department Discharge Additional Instructions: You have been evaluated in the ED for your right elbow pain. Please use ice as tolerated to the affected area. Please try to elevate the affected area to relieve swelling. Please try as much as able to rest the joint , as this will also help provide pain relief. You were provided with a prescription for a tennis elbow strap/brace, you may obtain this at [facility], located near [facility] or the [facility] [employer] [facility]. Otherwise you may obtain a brace at any pharmacy or other retail or like [email or web address]. These are usually $20 or less. Please follow the directions on the box for use of the brace. You may take Tylenol 500 mg or ibuprofen 600mg q6 hrs for pain relief. Please do so until you have a tolerable level of pain with activity. Do not exceed 4000mg Tylenol or 3200mg ibuprofen in a 24 hour time period. Recommend you have your symptoms rechecked by your primary care provider in around 2 weeks time to make sure that your condition is is getting better as expected. Please return to ED if your symptoms should change or worsen. Sepsis Event Note - Evaluation Sepsis Screening Result: No Definite Risk - Focused Exam Vital Signs: Vital Signs Temp Pulse Resp BP Pulse Ox 06/02/19 14:14 98.5 F 66 16 157/90 H 99 Date Exam was Performed: 06/02/19 Time Exam was Performed: 14:39 - My Orders Last 24 Hours: My Active Orders 06/02/19 14:38 DME for Discharge [COMM] Routine - Assessment/Plan Last 24 Hours: My Active Orders 06/02/19 14:38 DME for Discharge [COMM] Routine
[2019-06-02] MEDS ORDERED: Ketorolac 60 MG/2 ML SDV IM ONE (14:37)
== END 2019-06-02 15:15 | disposition home or self-care (01) ==
LOC: JD.ED 14:04
DX: M77.11 Lateral epicondylitis, right elbow (principal); I10 Essential (primary) hypertension; E78.00 Pure hypercholesterolemia, unspecified; K21.9 Gastro-esophageal reflux disease without esophagitis; F32.9 Major depressive disorder, single episode, unspecified; E11.9 Type 2 diabetes mellitus without complications; Z79.84 Long term (current) use of oral hypoglycemic drugs; Z87.891 Personal history of nicotine dependence; Z79.899 Other long term (current) drug therapy; Z88.8 Allergy status to other drugs, medicaments and biological substances
CPT/HCPCS: 96372; 99283; J1885